=== PATIENT | male | born 1950 | race Caucasian/White ===

== ENCOUNTER 2017-05-25 08:49 | Day surgery (SDC) | payer MEDICARE, BC ==
[~2017-05-25] VITALS: Ht 177.8 cm; Wt 81.3 kg
[~2017-05-25 08:49] MED LIST: FERROUS SU325 MG/TAB PO; HUMIRA40 MG/0.1 SC; LIALDA 1.2 GM1.2 GM PO
[2017-05-25 09:57] VITALS: BP 147/93; PULSE 62; TEMP 98.1
[2017-05-25] MEDS ORDERED: BETAMETHASONE O15 GM TP (09:57)
[2017-05-25 11:50] VITALS: BP 156/96; PULSE 77; TEMP 98
[2017-05-25 12:05] VITALS: BP 131/85; PULSE 85
[2017-05-25 12:20] VITALS: BP 148/95; PULSE 72
[2017-05-25 17:33] VITALS: BP 144/91; PULSE 88
== END 2017-05-25 12:45 | disposition home or self-care (01) ==
LOC: SDCO 08:49
DX: K51.00 Ulcerative (chronic) pancolitis without complications (principal); K55.20 Angiodysplasia of colon without hemorrhage; K57.30 Diverticulosis of large intestine without perforation or abscess without bleeding; K64.0 First degree hemorrhoids; K44.9 Diaphragmatic hernia without obstruction or gangrene; K29.30 Chronic superficial gastritis without bleeding; R13.10 Dysphagia, unspecified; D50.9 Iron deficiency anemia, unspecified; R63.0 Anorexia
CPT/HCPCS: OP; J2250; J3010; J7030

== ENCOUNTER 2018-05-02 09:38 | Emergency (ER) | payer MEDICARE, BC ==
[~2018-05-02] VITALS: Ht 175.3 cm; Wt 80.0 kg
[2018-05-02 09:41] VITALS: TEMP 97.6
[2018-05-02 10:18] LABS: BASO # 0.1 (0.0-0.2); BASO % 0.8 % (0.0-2.0); EOS # 0.3 (0.0-0.7); EOS % 4.6 % (0-4.0); GRAN # 3.7 (1.4-6.5); GRAN % 60.5 % (42.2-75.2); HEMATOCRIT 29.3 % (42.0-52.0); HEMOGLOBIN 10.1 g/dl (13.5-18.0); LYMPH # 1.5 (1.2-3.4); LYMPH % 24.5 % (20.0-51.0); MEAN CELL VOLUME 88 fl (80.0-100.0); MEAN CORPUSCULAR HEMOGLOBIN 30 pg (27.0-31.0); MEAN CORPUSCULAR HGB CONC 35 g/dl (33.0-37.0); MEAN PLATELET VOLUME 8.9 fl (7.4-10.4); MONO # 0.6 (0.1-0.6); MONO % 9.3 % (1.7-9.3); PLATELET COUNT 223 K/mm3 (130-400); RED BLOOD COUNT 3.34 M/mm3 (4.20-5.60); REDCELL DISTRIBUTION WIDTH-CV 13.5 % (11.5-14.5)
[2018-05-02 10:32] LABS: ALBUMIN 2.6 gm/dL (3.5-5.0); BILIRUBIN,TOTAL 0.6 mg/dL (0.0-1.0); C-REACTIVE PROTEIN 1.6 mg/dL (0.0-0.9); CALCIUM 7.9 mg/dL (8.4-10.2); CREATININE, serum 1.17 mg/dL (0.66-1.25)
[2018-05-02 10:47] LABS: LACTIC ACID 2.7 mmol/L (0.4-2.0)
[2018-05-02 10:53] LABS: POTASSIUM 2.9 mmol/L (3.4-5.0)
[2018-05-02 11:54] VITALS: BP 117/79; PULSE 96
== END 2018-05-02 11:41 | disposition home or self-care (01) ==
LOC: COL.ER 09:38
PROVIDERS: Family Medicine
DX: K72.10 Chronic hepatic failure without coma (principal); R18.8 Other ascites; I10 Essential (primary) hypertension; Z87.891 Personal history of nicotine dependence
CPT/HCPCS: J2405; J7030

== ENCOUNTER → 2018-05-02 | Outpatient (CLI) | payer MEDICARE, BC ==
[~2018-05-02] MED LIST changes: +BETAMETHASONE O15 GM TP; +TESTIM1% TP
[2018-05-02 13:30] VITALS: BP 111/71; PULSE 90
[2018-05-02 13:55] LABS: PERITONEAL -POLYMORPHONUCLEAR 5.6 % (0-25); PERITONEAL FLUID RBC 0 /mm3 (0-0)
== END ==
LOC: COL.RAD 11:52
PROVIDERS: Internal Medicine
DX: R18.8 Other ascites (principal)
CPT/HCPCS: 19804

== ENCOUNTER → 2018-06-20 | Outpatient (CLI) | payer MEDICARE, BC ==
[~2018-06-20] VITALS: Ht 175.3 cm; Wt 73.6 kg
[~2018-06-20] MED LIST changes: +ALDACTONE50 MG PO; +CYMBALTA 60MG60 MG PO; +LASIX 20MG TABL20 MG PO; +PRILOSEC 20MG20 MG PO
[2018-06-20 13:01] VITALS: BP 121/89; PULSE 98
[2018-06-20 15:22] VITALS: BP 128/84; PULSE 98
--- NOTE | 2018-06-20 15:32 | NUR ---
went down early to get the car. pt taken down to pov in wheelchair.
[2018-06-20 16:08] LABS: PERITONEAL -POLYMORPHONUCLEAR 8.2 % (0-25); PERITONEAL FLUID RBC 2000 /mm3 (0-0)
== END ==
LOC: COL.RAD 12:45
PROVIDERS: Internal Medicine Gastroenterology
DX: K70.31 Alcoholic cirrhosis of liver with ascites (principal)

== ENCOUNTER → 2018-07-14 | Outpatient (CLI) | payer MEDICARE, BC ==
[~2018-07-14] VITALS: Ht 175.3 cm; Wt 77.3 kg
[~2018-07-14] MED LIST changes: +ENULOSE10 GM/151 PO; +FLOMAX 0.40.4 MG/CAP PO
[2018-07-14 09:48] VITALS: BP 135/98; PULSE 90
[2018-07-14 11:55] VITALS: BP 151/97; PULSE 89
--- NOTE | 2018-07-14 12:10 | NUR ---
pt leaves ambultory with staff to waiting room to get . pt then ambulates to pov
[2018-07-14 12:26] LABS: PERITONEAL -POLYMORPHONUCLEAR 7.1 % (0-25); PERITONEAL FLUID RBC 0 /mm3 (0-0)
== END ==
LOC: COL.RAD 09:22
PROVIDERS: Internal Medicine Gastroenterology
DX: K70.31 Alcoholic cirrhosis of liver with ascites (principal)

== ENCOUNTER → 2018-08-02 | Outpatient (CLI) | payer MEDICARE, BC ==
[~2018-08-02] VITALS: Ht 175.3 cm; Wt 74.0 kg
[2018-08-02 12:48] VITALS: BP 138/92; PULSE 83
[2018-08-02 14:42] LABS: PERITONEAL -POLYMORPHONUCLEAR 4.1 % (0-25); PERITONEAL FLUID RBC 0 /mm3 (0-0)
[2018-08-02 15:03] VITALS: BP 150/90; PULSE 79
--- NOTE | 2018-08-02 15:07 | NUR ---
PT IS WALKED TO [facility] RITTER AND MET UP WITH HIS . THEY LEAVE FOR THE CAR
== END ==
LOC: COL.RAD 12:30
PROVIDERS: Internal Medicine Gastroenterology
DX: K70.31 Alcoholic cirrhosis of liver with ascites (principal)

== ENCOUNTER 2018-08-11 11:18 | Inpatient (IN) | payer MEDICARE, BC ==
[~2018-08-11] VITALS: Ht 175.3 cm; Wt 66.2 kg
[2018-08-11] VITALS (9 sets, daily range): BP systolic 97–111; BP diastolic 64–83; PULSE 71–93; TEMP 97.3–98.4
[2018-08-11 11:58] LABS: BASO # 0.1 (0.0-0.2); BASO % 0.7 % (0.0-2.0); EOS # 0.4 (0.0-0.7); EOS % 5.9 % (0-4.0); GRAN # 4.9 (1.4-6.5); GRAN % 71.2 % (42.2-75.2); LYMPH # 0.9 (1.2-3.4); LYMPH % 12.6 % (20.0-51.0); MEAN CELL VOLUME 82 fl (80.0-100.0); MEAN CORPUSCULAR HGB CONC 34 g/dl (33.0-37.0); MEAN PLATELET VOLUME 8.8 fl (7.4-10.4); MONO # 0.6 (0.1-0.6); MONO % 9.3 % (1.7-9.3); PLATELET COUNT 284 K/mm3 (130-400); REDCELL DISTRIBUTION WIDTH-CV 13.5 % (11.5-14.5)
[2018-08-11 12:00] LABS: HEMATOCRIT 28.7 % (42.0-52.0); HEMOGLOBIN 9.7 g/dl (13.5-18.0); MEAN CORPUSCULAR HEMOGLOBIN 28 pg (27.0-31.0)
[2018-08-11 12:02] LABS: COLLECTION METHOD CLEAN CATCH
[2018-08-11 12:07] LABS: INR 1.2 (0.8-3.0); PROTHROMBIN TIME 14.1 SECONDS (9.7-12.8)
[2018-08-11 12:08] LABS: ALANINE AMINOTRANSFERASE 19 U/L (21-72); ALBUMIN 3.2 gm/dL (3.5-5.0); ALKALINE PHOSPHATASE 105 U/L (50-136); ANION GAP 16 mmol/L (7-16); AST,SGOT 37 U/L (15-37); BILIRUBIN,TOTAL 0.5 mg/dL (0.0-1.0); BLOOD UREA NITROGEN 77 mg/dL (9-20); CALCIUM 7.4 mg/dL (8.4-10.2); CARBON DIOXIDE 20 mmol/L (22-30); CHLORIDE 91 mmol/L (98-107); GLUCOSE 90 mg/dL (74-106); MAGNESIUM 1.3 mg/dL (1.6-2.3); POTASSIUM 4.7 mmol/L (3.4-5.0); SODIUM 127 mmol/L (137-145); TOTAL PROTEIN 6.8 gm/dL (6.4-8.2)
[2018-08-11 12:09] LABS: ALCOHOL(ethanol),MEDICAL < 10 mg/dL; CREATININE, serum 6.41 (0.66-1.25); PHOSPHOROUS 9.3 mg/dL (2.5-4.5)
[2018-08-11 12:09] LABS: PH 6 (5-8); SQUAMOUS EPITHELIAL 0-2 /hpf; URINE APPEARANCE Clear; URINE BACTERIA None Seen /hpf; URINE BILIRUBIN Negative (NEGATIVE); URINE BLOOD 1+ (NEGATIVE); URINE COLOR Yellow; URINE GLUCOSE Negative (NEGATIVE); URINE KETONE Negative (NEGATIVE); URINE LEUKOCYTE ESTERASE Negative (NEGATIVE); URINE NITRATE Negative (NEGATIVE); URINE PROTEIN(semi-quant) Negative (NEGATIVE); URINE RBC 0-2 /hpf; URINE UROBILINOGEN Negative (NEGATIVE)
[2018-08-11 12:10] LABS: PARTIAL THROMBOPLASTIN TIME 32.7 SECONDS (26.0-37.0)
[2018-08-11 12:23] LABS: TROPONIN-I < 0.012 ng/mL (0.000-0.035)
[2018-08-11 16:42] LABS: RETIC # 0.03 M/mm3 (0.02-0.16)
--- NOTE | 2018-08-11 17:35 | NUR ---
Harsha,Pharmacist called to inquire about q8hr 5000U IV heparin order - pharmacist will call MD to clarify
--- NOTE | 2018-08-11 19:05 | NUR ---
Dr. Gillette here to see patient and attempt to clear out clots from archibald catheter.
--- NOTE | 2018-08-11 20:05 | NUR ---
Albin Wylie, anesthesiologist here at bedside to see patient.
--- NOTE | 2018-08-11 20:15 | NUR ---
Left unit to OR for bladder irrigation. Patient alert and VS stable at this time. Left on portable monitor.
--- NOTE | 2018-08-11 20:18 | NUR ---
Patient's , Kim, notified that will be taking to OR to do an irrigation of the bladder due to clotting of archibald and to find source of bleeding. All questions addressed.
[2018-08-11 21:04] LABS: ALBUMIN 2.7 gm/dL (3.5-5.0); CALCIUM 7.1 mg/dL (8.4-10.2); PHOSPHOROUS 8.1 mg/dL (2.5-4.5); POTASSIUM 4.5 mmol/L (3.4-5.0)
[2018-08-11 21:08] LABS: CREATININE, serum 5.64 (0.66-1.25)
--- NOTE | 2018-08-11 21:15 | NUR ---
Dr. Wisdom here to see patientDerek Styles out of the unit in the OR. Informed him that patient is currently SR and rate controlled on Cardizem drip. Stated will see him tomorrow unless something is needed overnight.
--- NOTE | 2018-08-11 21:28 | NUR ---
Dr. Gillette here to discuss plan for patient. Will be on CBI. Dennis on phone with hospitalist. Would like to hold heparin due to bleeding from bladder.
--- NOTE | 2018-08-11 21:58 | NUR ---
Received telephone report from Dalila DRAMATIC [employer] HISTORIAN. Mario be bringing patient back to unit shortly.
--- NOTE | 2018-08-11 22:10 | NUR ---
Arrived to the unit; alert but drowsy. Able to answer questions and follow commands appropriately. Denies pain at this time. VS stable. Monitoring CBI for excessive clotting and adjusting rate of fluid as necessary.
--- NOTE | 2018-08-11 22:34 | NUR ---
Patient received banana bag with magnesium added. Called back hospitalist to inform her that he did receive replacement. WIll not need to put on magnesium protocol. Requested to re-check mag in the am if there isnt already an order.
[2018-08-12] VITALS (7 sets, daily range): BP systolic 93–120; BP diastolic 60–79; PULSE 66–122; TEMP 97.3–97.9
--- NOTE | 2018-08-12 01:36 | NUR ---
Patient has been rate controlled and SR with occasional ectopy for majority of shift. HR suddenly increased to 130's around 0130 and appears to be back in afib/flutter. Cardizem rate increased. Hospitalist notified as HR had hit the upper limits of 130. Ok to increase rate limit to 140. Patient also reporting burning sensation around urethra. Will administer PO tylenol.
[2018-08-12 05:08] LABS: ALBUMIN 2.5 gm/dL (3.5-5.0); BILIRUBIN,TOTAL 0.3 mg/dL (0.0-1.0); CALCIUM 6.7 mg/dL (8.4-10.2); CREATININE, serum 5.08 (0.66-1.25); MAGNESIUM 1.5 mg/dL (1.6-2.3); POTASSIUM 4.1 mmol/L (3.4-5.0); TOTAL PROTEIN 5.5 gm/dL (6.4-8.2)
--- NOTE | 2018-08-12 06:06 | NUR ---
[place] ST with rate of 101. Rhythm has alternated bewtween Sinus and a-fib periodically during the night. Jensen on Cardizem drip. Will continue to monitor.
[2018-08-12 07:07] LABS: BASO % 0.5 % (0.0-2.0); EOS # 0.2 (0.0-0.7); EOS % 3.8 % (0-4.0); GRAN # 4.6 (1.4-6.5); GRAN % 72.6 % (42.2-75.2); LYMPH # 0.8 (1.2-3.4); MEAN CELL VOLUME 82 fl (80.0-100.0); MEAN CORPUSCULAR HGB CONC 34 g/dl (33.0-37.0); MONO # 0.6 (0.1-0.6); MONO % 9.5 % (1.7-9.3); PLATELET COUNT 241 K/mm3 (130-400); RED BLOOD COUNT 2.62 M/mm3 (4.20-5.60); REDCELL DISTRIBUTION WIDTH-CV 13.6 % (11.5-14.5)
--- NOTE | 2018-08-12 07:12 | NUR ---
Bedside report given to WALE Pearson. Patient care transfered.
[2018-08-12 07:15] LABS: HEMATOCRIT 21.5 % (42.0-52.0); HEMOGLOBIN 7.4 g/dl (13.5-18.0); MEAN CORPUSCULAR HEMOGLOBIN 28 pg (27.0-31.0)
--- NOTE | 2018-08-12 09:15 | NUR ---
MD Huy called notified pt will go back to OR by MD Leta - reported on H&H drop, continued hematuria, and IV fluids since admission have been infusing at 250mL/hr
--- NOTE | 2018-08-12 09:18 | NUR ---
Laith from OR called for update: procedure is on schedule for 1130 - pt and spouse whos at bedside notified
--- NOTE | 2018-08-12 09:37 | NUR ---
SW attempted to meet with the patient, but due to the patient's condition the pt's nurse recommended against it at this time. SW will attempt at a later time.
--- NOTE | 2018-08-12 10:04 | NUR ---
ROSANGELA met with the patient and his Kim to discuss a discharge plan. The pt was resting and Kim answered all the questions. The pt and Kim live [place]5 miles outside of [place]. The pt does not use DME and is independent with ADLs. Kim reports the family home is accessible. The pt's PCP is Dr. Bonner and receives his medications from [facility] and no difficulties reported in obtaining them. The pt does not have advanced directives in the EMR but Kim was interested in obtaining a DPOA-HC form. The plan is to return home. ROSANGELA will continue to follow and assist with any discharge recommendations. Kim Melendrez
--- NOTE | 2018-08-12 10:12 | NUR ---
MD Leta at bedside talking with pt and family
--- NOTE | 2018-08-12 10:19 | NUR ---
Initial visit; Patient's thanked Cold Type Artist for offering God's blessings to Vikash who was resting until his Physician arrived.
--- NOTE | 2018-08-12 10:30 | NUR ---
MD Huy notified that pt CIWA=7 and pt now is having halucinations stating "why is this bucked of dog food in the bed with me" while pt grasping at the air.
--- NOTE | 2018-08-12 11:00 | NUR ---
OR team here picking up pt
--- NOTE | 2018-08-12 11:13 | NUR ---
SW attended rounds with the team. The pt is going to have surgery today. SW will continue following.
--- NOTE | 2018-08-12 13:15 | NUR ---
Pt arrived from PACU. Pt unresponsive, hypotensive, 90%SpO2 on 10L simple mask, pupils 1+ non-reactive and fixed, respirations prologed and laborous. MD Huy notified and has consulted MD Rodrigo. MD Rodrigo called at 1320, Spouse at bedside. 1322 MD Rodrigo on unit. Orders recieved and carried out. 1335 pt's daughter at bedside - 1350 family meeting with MD Rodrigo and Briseyda Ocampo RN - family has decided to procede with comfort measures. 1330 dining services called for comfort care basket 1430 2 grandsons at bedside
--- NOTE | 2018-08-12 15:20 | NUR ---
The patient was placed on comfort care. SW is available for support.
--- NOTE | 2018-08-12 16:27 | NUR ---
Called to room to discuss comfort care with family. They report having experienced multiple deaths over last few years and are feeling that comfort care would be in pt's best interest at this time. Grandsons visited briefly. Support provided to pt's and daughter as well as grandsons. Pt was troubled by 02 mask and after discussion, it was removed for his comfort. he was also medicated which has allowed him to rest comfortably since.
--- NOTE | 2018-08-12 20:10 | NUR ---
Patient lying in bed, appears to be comfortable, at bedside. declining turns at this time, declining any additional medication. Nurse stated he would be back around, she can let me know how she wants his care guided. Will continue to monitor.
--- NOTE | 2018-08-13 06:00 | NUR ---
is at bedside, discussing patient care with nurse. No further treatment at this time.
--- NOTE | 2018-08-13 08:35 | NUR ---
Pt noted to be in asystole at this time on conveyor monitor. Absence of heart tones noted by this RN and Freddie Gandhi RN. Provider notified of Pt . Accessories Repairer notified. Family present at bedside. Will remain availabe for family needs.
--- NOTE | 2018-08-13 12:12 | NUR ---
Post-mortem care complete at this time. Pt departing with mortuary service at this time. All belongings taken home with Kim.
== END 2018-08-13 13:48 | disposition expired | DRG 309 ==
LOC: COL.ER 11:18 → ICU 15:05
PROVIDERS: Emergency Medicine; Internal Medicine Nephrology; Urology
PROC: 0T9B80Z Drainage of Bladder with Drainage Device, Via Natural or Artificial Opening Endoscopic (ICD-10-PCS; principal; 2018-08-11 14:00)
DX: I48.91 Unspecified atrial fibrillation (principal); E87.1 Hypo-osmolality and hyponatremia; E87.2 Acidosis; E46 Unspecified protein-calorie malnutrition; N17.9 Acute kidney failure, unspecified; N13.8 Other obstructive and reflux uropathy; I47.1 Supraventricular tachycardia; I10 Essential (primary) hypertension; K70.31 Alcoholic cirrhosis of liver with ascites; Z66 Do not resuscitate; F41.9 Anxiety disorder, unspecified; F32.9 Major depressive disorder, single episode, unspecified; K21.9 Gastro-esophageal reflux disease without esophagitis; N40.1 Benign prostatic hyperplasia with lower urinary tract symptoms; R31.0 Gross hematuria; F10.10 Alcohol abuse, uncomplicated; R33.8 Other retention of urine; F17.200 Nicotine dependence, unspecified, uncomplicated; I95.9 Hypotension, unspecified; E83.42 Hypomagnesemia; E83.39 Other disorders of phosphorus metabolism; D64.9 Anemia, unspecified; Z68.22 Body mass index [BMI] 22.0-22.9, adult; Z88.8 Allergy status to other drugs, medicaments and biological substances; K70.10 Alcoholic hepatitis without ascites
CPT/HCPCS: 99223-AI; 99238; C1769; J0153; J0282; J0690; J0780; J1644; J2060; J2250; J2270; J2405; J2704; J3010; J3475; J7030; J7060